=== PATIENT | female | born 2000 | race Native Hawaiian/Other Pacific Islander ===

== ENCOUNTER 2024-11-25 22:10 | Emergency (ER) | payer OTHER ==
--- NOTE | 2024-11-25 22:25 | ERPHSYRPT ---
- History of Present Illness Source: patient Exam Limitations: no limitations Physician History: Patient has dysuria. She did a course of Macrobid acting any better. She has frequency as well as well as some urgency. She does not have any abdominal pain. She has no nausea or vomiting and no fever or chills. Nothing makes symptoms better or worse. Symptoms been going on for about 4 5 days. Allergies/Adverse Reactions: Penicillins Allergy (Verified 11/25/24 22:19) - Review of Systems Constitutional: No Symptoms Eyes: No Symptoms Ears, Nose, & Throat: No Symptoms Genitourinary Symptoms: Dysuria, Frequency, Urgency Musculoskeletal: No Symptoms All Other Systems: Reviewed and Negative - Nursing Vital Signs Nursing Vital Signs: Initial Vital Signs Pulse Rate 79 11/25/24 22:19 Blood Pressure 135/84 11/25/24 22:19 O2 Sat by Pulse Oximetry 99 11/25/24 22:19 Pain Scale Pain Intensity 4 - Physical Exam General Appearance: no apparent distress Eye Exam: PERRL/EOMI Gastrointestinal/Abdomen Exam: soft, normal bowel sounds Pelvic Exam: not done Back Exam: normal inspection Skin Exam: normal color - Course Nursing assessment & vital signs reviewed: No Ordered Tests: Active Orders 24 hr Category Date Time Status CULTURE,URINE Stat Lab 11/25/24 22:30 Received HCG, Quantitative (Inhouse) Stat Lab 11/25/24 23:10 Received UA W/RFX UR CULTURE Stat Lab 11/25/24 22:30 Completed Lab/Rad Data: Laboratory Results 11/25/24 Range/Units 22:30 Urine Color [place] A (Yellow) Urine Appearance Turbid A (Clear) Urine pH 5.0 (4.6-8.0) Ur Specific [place] 1.025 (1.005-1.030) Urine Protein 100 A (Negative) Urine Glucose (UA) Negative (Negative) mg/dL Urine Ketones Negative (Negative) Urine Blood Large A (Negative) Urine Nitrite Positive A (Negative) Urine Bilirubin Small A (Negative) Urine Urobilinogen 1.0 A (0.2) mg/dL Ur Leukocyte Esterase Moderate A (Negative) U Hyaline Cast (Auto) NONE SEEN (0-2) /LPF Urine Microscopic RBC >100 A (0-5) /HPF Urine Microscopic WBC 51-100 A (0-5) /HPF Ur Epithelial Cells Few (None Seen) /HPF Urine Bacteria Moderate A (None Seen) /HPF Urine Culture Reflexed YES (NO) - Progress Progress: re-examined Air Movement: good Progress Note: Patient was stable throughout stay. Appears she just has a urinary tract infection and failed Macrobid. I went to start her on Bactrim. Will discharge her to home in stable condition. 11/25/24 23:36 Medical Desision Making - Risk of complications Minimal Risk: Minimal risk of morbidity - Departure Departure Disposition: Home Clinical Impression: Urinary tract infection Condition: Stable Critical Care Time: No
[2024-11-25 22:30] VITALS: RESP 18; TEMP 97.2
[2024-11-25 22:55] LABS: Appearance Turbid (Clear); Bilirubin Small (Negative); Blood Large (Negative); Epithelial Cells Few /HPF (None Seen); Glucose, Urine Negative (Negative); Hyaline Casts NONE SEEN /LPF (0-2); Ketones Negative (Negative); Leukocyte Esterase Moderate (Negative); Nitrite Positive (Negative); Protein,Urine Dip 100 (Negative); RBC >100 /HPF (0-5); Specific Gravity 1.025 (1.005-1.030); WBC 51-100 /HPF (0-5)
[2024-11-25 22:56] LABS: Bacteria Moderate /HPF (None Seen)
[2024-11-25 23:20] VITALS: BP 98/63; PULSE 86; O2SAT 99
[2024-11-25] MEDS ORDERED: BACTRIM DS TABLET PO ONE (23:38)
[2024-11-25] MEDS: BACTRIM DS TABLET PO STA (23:39)
== END 2024-11-25 23:51 | disposition home or self-care (01) ==
LOC: ED 22:10
DX: N39.0 Urinary tract infection, site not specified (principal); R30.0 Dysuria; R35.0 Frequency of micturition; Z79.899 Other long term (current) drug therapy; Z72.0 Tobacco use
CPT/HCPCS: 36415; 81001; 84702; 87077; 87086; 87186; 99283; A9270-GY

== ENCOUNTER 2025-07-30 16:44 | Emergency (ER) | payer OTHER ==
[2025-07-30 17:01] VITALS: PULSE 67; RESP 16; TEMP 97.6; O2SAT 100
[2025-07-30 17:06] VITALS: BP 120/85
--- NOTE | 2025-07-30 17:12 | ERPHSYRPT ---
- History of Present Illness Patient Subjective Stated Complaint: Insect bite Triage Nursing Assessment: Patient walks to the bed, breathing is easy, skin warm and dry. She states that two days ago, she was bitten by an unknown insect. The area has been itchy, but she denies any other symptoms. She has a small area to the left anterior forearm that is red and leaking clear fluid. 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 [employer], she states she felt something sharp strike her left forearm or possibly bite her forearm and the following day she had noticed there is more redness, today she has had some drainage from the site, she has been applying triple antibiotic to the area, she denied history of recurrent skin infections, she had a history of MRSA Timing/Duration: day(s) (3) Quality: burning, painful Severity: moderate Location: extremities (Left forearm) Possible Causes: no cause identified Associated Symptoms: denies symptoms Allergies/Adverse Reactions: Penicillins Allergy (Verified 11/25/24 22:19) Home Medications: Levothyroxine Sodium 50 mcg PO DAILY 07/30/25 [History] Hx Tetanus, Diphtheria Vaccination/Date Given: Yes Hx Influenza Vaccination/Date Given: No Hx Pneumococcal Vaccination/Date Given: No Travel Risk - International Travel Have you traveled outside of the country in past 3 weeks: No - Emerging Infectious Disease Are you exhibiting symptoms associated with any current EIDs: No - Past Medical History Pertinent Past Medical History: No Neurological History: No Pertinent History ENT History: No Pertinent History Cardiac History: No Pertinent History Respiratory History: No Pertinent History Endocrine Medical History: Hypothyroidism Musculoskeletal History: No Pertinent History GI Medical History: No Pertinent History History: No Pertinent History Psycho-Social History: No Pertinent History Female Reproductive Disorders: No Pertinent History Other Medical History: lyme disease - Past Surgical History Past Surgical History: Yes Neuro Surgical History: No Pertinent History Cardiac: No Pertinent History Respiratory: No Pertinent History Gastrointestinal: No Pertinent History Genitourinary: No Pertinent History Musculoskeletal: No Pertinent History Female Surgical History: No Pertinent History - Female History Hx Last Menstrual Period: 07/19/2025 Hx Now: No - Social History Smoking Status: Never smoker Exposure to second hand smoke: No Drug Use: none - Social Determinants of Health Will the patient participate in the screening: Yes Do you worry about a steady place to live?: No Do you have any problems with any of the following?: No known problems In the past 12 months,have you had to go without utilities?: No Transportation Issues: No Has anyone in your support network made you feel unsafe?: No Have you or anyone in your house had to go w/o enough food: No - Nursing Vital Signs Nursing Vital Signs: Initial Vital Signs Temperature 97.6 F 07/30/25 16:50 Pulse Rate 67 07/30/25 16:50 Respiratory Rate 16 07/30/25 16:50 Blood Pressure 122/85 07/30/25 16:50 O2 Sat by Pulse Oximetry 100 07/30/25 16:50 Pain Scale Pain Intensity 2 - Physical Exam General Appearance: no apparent distress, alert Eye Exam: PERRL/EOMI, eyes nml inspection Extremity Exam: normal range of motion Neurologic Exam: alert, oriented x 3, cooperative, 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 as tested Skin Exam: other (Skin no ulceration to the anterior aspect of the left forearm, there is an area of localized erythema with tenderness, there is some clear drainage from the middle of the site, there is no purulent drainage noted, there is no red streaking from the site, no lymphangitic spread) SpO2 Interpretation: normal SpO2: 100 - Progress Progress Note: 07/30/25 17:05 The wound appears to be a localized reaction, she was using triple antibiotic applied to the wound which she may continue, she placed on oral antibiotics for some coverage, she also be placed on topical steroid to help reduce some of the inflammation - Departure Departure Disposition: Home Clinical Impression: Abscess of left forearm Condition: Stable Critical Care Time: No Referrals: MAN HANSEN MD [Primary Care Provider, [facility]] - Follow up with PCP 7 days Instructions: Insect Bites and Stings (DC), Skin abscess drainage - Discharge instructions Prescriptions: Triamcinolone Acetonide 0.1% [Kenalog 0.1% Ointment] 15 gm TP BID #15 applic Minocycline HCl 100 mg PO BID #20 tablet
== END 2025-07-30 17:27 | disposition home or self-care (01) ==
LOC: ED 16:44
DX: L02.414 Cutaneous abscess of left upper limb (principal); Z79.899 Other long term (current) drug therapy